=== PATIENT | female | born 1935 | race Caucasian/White ===

== ENCOUNTER 2018-05-23 15:53 | Inpatient (IN) | payer MEDICARE, MEDICAID | END 2018-05-25 16:40 | disposition home or self-care (01) | LOC: ER 15:53 → ED HOLD 19:52 → SUR 3N 21:15 ==

== ENCOUNTER 2019-08-29 21:15 | Emergency (ER) | payer MEDICARE, MEDICAID ==
[~2019-08-29] VITALS: Ht 162.6 cm; Wt 38.6 kg
[~2019-08-29 21:15] MED LIST: ATRIN INH; HYDR-4383 PO; TRAZ-91 PO
[2019-08-29 21:47] LABS: BASOPHILS # (AUTO) 0.1 X10'3 (0-0.2); EOSINOPHILS # (AUTO) 0.5 X10'3 (0-0.9); HEMATOCRIT 29.2 % (35.0-45.0); HEMOGLOBIN 9.6 g/dl (12.0-16.0); LYMPHOCYTES % (AUTO) 16.7 % (21-51); MEAN CORPUSCULAR HEMOGLOBIN 26.5 PG (27.0-31.0); MEAN CORPUSCULAR HGB CONC 32.9 g/dL (33.0-36.5); MEAN CORPUSCULAR VOLUME 80.6 FL (78-98); MEAN PLATELET VOLUME 8.2 FL (7.4-10.4); MONOCYTES # (AUTO) 0.6 X10'3 (0-0.9); MONOCYTES % (AUTO) 9.8 % (2-12); NEUTROPHILS % (AUTO) 64.5 % (42-75); PLATELET COUNT 240 X10'3 (140-440); RED BLOOD COUNT 3.63 X10'6 (4.20-5.60); RED CELL DISTRIBUTION WIDTH 13.8 % (11.5-14.5); WHITE BLOOD COUNT 6.2 X10'3 (4.5-11.0)
[2019-08-29 22:06] LABS: ALANINE AMINOTRANSFERASE 13 U/L (12-78); ALBUMIN 3.3 G/DL (3.4-5.0); ALKALINE PHOSPHATASE 72 IU/L (46-116); ANION GAP 2 (8-16); ASPARTATE AMINO TRANSFERASE 17 U/L (10-37); BILIRUBIN,TOTAL 0.3 MG/DL (0.1-1.0); BLOOD UREA NITROGEN 11 MG/DL (7-18); BUN/CREATININE RATIO 11.7 (6.6-38.0); CALCIUM 9.1 MG/DL (8.5-10.1); CHLORIDE 100 MMOL/L (99-107); CREATININE 0.94 MG/DL (0.40-0.90); GLUCOSE 141 MG/DL (70-104); POTASSIUM 3.8 MMOL/L (3.5-5.1); SODIUM 138 MMOL/L (135-145); TOTAL CARBON DIOXIDE 35.6 MMOL/L (24-32); TOTAL PROTEIN 6.6 G/DL (6.4-8.2); eGFR 57 ML/MIN
[2019-08-29] MEDS ORDERED: ipratropium/albuterol 3ml nebule NEB ONE (22:45)
[2019-08-29] MEDS ORDERED: ALBU18HF2 INH (22:51)
--- NOTE | 2019-08-29 23:47 | NUR ---
Attempted to call "Suzette" on pt's contact list. No success.
--- NOTE | 2019-08-29 23:55 | NUR ---
Call out made to Le Estrada and Filomena Wells on pt's contact list. Messages left. Awaiting call back.
--- NOTE | 2019-08-30 01:22 | NUR ---
Attempted to call Suzette Love listed on patient data. Number has been changed or is no longer in service. Attempted patients home number. No answer.
--- NOTE | 2019-08-30 05:07 | NUR ---
Patient contacts: Le Estrada [phone] Filomena Wells [phone] Guru Orozco [phone]
--- NOTE | 2019-08-30 05:49 | NUR ---
Pt states she live alone in a trailer and does not use a walker or a cane; she states she moves around her home with no difficulty. When offered to call a taxi for her she states she wants somebody from her list of contacts to drive her home. I told her we would make and effort to contact those on her list, but if we did not get an answer, we would send her home in a taxi.
--- NOTE | 2019-08-30 06:35 | NUR ---
RN contacted Le [phone],wrong number Filomena [phone]- left a message Guru [phone],wrong number Suzette- disconnected
[2019-08-30 07:10] VITALS: BP 159/73
--- NOTE | 2019-08-30 08:46 | NUR ---
landcare facilitator called to check on pt. i informed the landcare facilitator that she had been discharged for over 8 hours and multiple messages left for herself and family that was listed on her contacts. landcare facilitator stated she was sorry and that she does not drive and could not come and get her. landcare facilitator states that her drives them but is out of town until tomorrow. i educated the landcare facilitator that we were going to transport pt. home via ambulance. i explained that it was inappropriate to take an ambulance out of service to transport pt's.
[2019-08-30] MEDS ORDERED: IBUP-1984 PO (13:13)
[2019-08-30] MEDS ORDERED: ACET-2119 PO (13:16)
[2019-08-30] MEDS ORDERED: LEVO25TA7 PO (15:54)
== END 2019-08-30 09:01 | disposition home or self-care (01) ==
LOC: ER 21:15
DX: J44.9 Chronic obstructive pulmonary disease, unspecified (principal); I25.2 Old myocardial infarction; E03.9 Hypothyroidism, unspecified; G89.29 Other chronic pain; Z90.49 Acquired absence of other specified parts of digestive tract; Z98.890 Other specified postprocedural states; Z60.2 Problems related to living alone; Z88.2 Allergy status to sulfonamides; Z88.8 Allergy status to other drugs, medicaments and biological substances; Z79.899 Other long term (current) drug therapy
CPT/HCPCS: 36415; 71045; 80053; 84484; 85025; 93005; 94640; 94760; 99285